=== PATIENT | male | born 1985 | race Caucasian/White ===

== ENCOUNTER 2024-04-22 11:11 | Emergency (ER) | payer OTHER, SELFPAY ==
--- NOTE | ~2024-04-22 | XR_ITS ---
EXAMINATION: XR CHEST CLINICAL INFORMATION: Chest pain COMPARISON: None available. TECHNIQUE: Frontal view of the chest was obtained. FINDINGS: The lungs are adequately expanded. No focal consolidation. No pleural effusion, overt edema or pneumothorax. The cardiomediastinal silhouette is within normal limits. No acute osseous abnormality. XR/XR chest 1V IMPRESSION: No acute pulmonary disease.
--- NOTE | 2024-04-22 11:11 | ECG_ITS ---
Test Reason : CHEST PAIN Blood Pressure : / mmHG Vent. Rate : 097 BPM Atrial Rate : 097 BPM P-R Int : 118 ms QRS Dur : 090 ms QT Int : 350 ms P-R-T Axes : 051 043 035 degrees QTc Int : 444 ms Normal sinus rhythm Normal ECG No previous ECGs available Referred By: Generic ED Physician Electronically Signed By:KIARA ANDERSON MD
--- NOTE | 2024-04-22 11:15 | ED.CHESTPAIN ---
HPI - Chest Pain General Chief Complaint: Chest Pain Stated Complaint: chest pain Time Seen by Provider: 04/22/24 14:31 History of Present Illness HPI narrative: The patient is a 38-year-old male who says he has been taking a great deal of cocaine nasally over the last week. He has been feeling a sense of chest pain and anxiety and has not been sleeping. He finally came to the emergency room to get help for this problem. Denies suicidality. He denies using a needle to take any drugs. Related Data Allergies Allergy/AdvReac Type Severity Reaction Status Date / Time No Known Allergies Allergy Verified 04/22/24 11:17 Review of Systems Review of Systems: Yes all other systems are reviewed and are negative [facility] Social History Social History Advance Directives: No Advance Directives Information Provided: No Physical Exam Vital Signs: Vital Signs: Last Vital Signs Temp 97.1 F 04/22/24 16:10 Pulse 66 04/22/24 16:10 Resp 16 04/22/24 16:10 BP 117/72 04/22/24 16:10 Pulse Ox 95 04/22/24 16:10 O2 Del Method Room Air 04/22/24 11:16 BMI result Body Mass Index 27.4 Const: Other: At the time that I saw the patient he had received a dose of lorazepam and was quite sleepy. He was arousable with tactile stimuli. He did not seem in distress HEENT: Other: The face is symmetrical. ?Mucous membranes moist. Eyes: Other: Pupils are round equal, conjunctivae are clear, extraocular movements intact Neck: Other: Neck is supple Neck: Yes no JVD Resp: Effort & Inspection: normal respiratory effort Auscultation: clear to auscultation bilaterally Cardio: Rate: regular rate Rhythm: regular rhythm Heart sounds: S1 normal heart sound present and S2 normal heart sound present GI: Other: Abdomen was soft and nontender Skin: Other: Skin is dry and unremarkable Neuro: Other: The patient was sleepy. He had received a dose of lorazepam. He was arousable with tactile and loud verbal stimuli. His face is symmetrical. His speech is clear. Eye movements normal. Neck is supple. Moving extremities symmetrically. He seems grossly neurologically intact. Extrem: Other: No deformities to the extremities. No peripheral edema. Course Course Course Narrative: This is a Rapid Medical Examination (RME) performed by Ernesto Carlson PA-C in triage. Full HPI, ROS, assessment and treatment plan per primary provider in the Main ED. 38 y/o male with history of depression and anxiety, cocaine use disorder who presents to the ER for evaluation of worsening central chest pains for the last 8 days in the setting of cocaine binge for the last week. He has been using an 8 ball of cocaine daily and has not slept in 1 week. He arrives to triage, anxious, restless. HR 110. Pain is currently 7/10. He is SOB. Plan: EKG, CXR, labs, he needs benzos Medications Administered Discontinued Medications Generic Name Dose Route Start Last Admin Trade Name Freq PRN Reason Stop Dose Admin Lorazepam 2 mg 04/22/24 11:41 04/22/24 11:50 Lorazepam 1 Mg Tablet PO 04/22/24 11:42 2 mg ONCE ONE Administration Medical Decision Making Medical Decision Making [facility] Narrative: The patient is a 38-year-old male who presents to the emergency room because he feels unwell after using a lot of cocaine. He has a normal EKG. His troponin is normal. His renal function is normal. He does not seem to have any definite identifiable acute complications of overuse of cocaine. He fell asleep easily after 2 mg of oral lorazepam. He was observed. Requesting food. He denies suicidality. He will be discharged once he is steady on his feet. Lab Data 04/22/24 11:28 04/22/24 11:29 Labs: Lab Results 04/22/24 04/22/24 Range/Units 11:28 11:29 WBC 9.9 (4.8-10.8) X10*3/uL RBC 5.39 (4.60-5.80) X10*6/uL Hgb 14.2 (14.0-18.0) g/dl Hct 42.8 (42.0-52.0) % MCV 79.4 L (80.0-98.0) fL MCH 26.3 L (27.0-33.0) pg MCHC 33.2 (31.0-36.0) g/dl RDW 14.0 (11.0-16.0) % Plt Count 380 (160-400) X10*3/uL MPV 10.0 (9.4-12.4) fL Immature Gran % (Auto) 0.3 (0.0-0.4) % Neut % (Auto) 59.6 (45-73) % Lymph % (Auto) 27.5 (20-40) % Mccreary % (Auto) 9.5 (2-11) % Eos % (Auto) 2.8 (0-4) % Baso % (Auto) 0.3 (0-2) % Lymph # (Auto) 2.7 (1.2-4.9) X10*3/uL Mccreary # (Auto) 0.9 (0.1-1.2) X10*3/uL Eos # (Auto) 0.3 (0.0-0.4) X10*3/uL Baso # (Auto) 0.0 (0.0-0.2) X10*3/uL Abs Immat Gran (auto) 0.03 (0.00-0.03) X10*3/uL Absolute Neuts (auto) 5.9 (2.0-8.3) x10*3/uL Absolute Nucleated RBC 0.000 (0.0-0.012) X10*3/uL Nucleated RBC % (auto) 0.0 (0.0-0.2) /100WBC PT 14.4 H (11.1-13.3) SEC INR 1.2 H (0.9-1.1) APTT 32.2 (26.0-36.8) SEC Sodium 140 (135-145) mmol/L Potassium 3.6 (3.3-5.1) mmol/L Chloride 105 (96-108) mmol/L Carbon Dioxide 26 (22-29) mmol/L Anion Gap 13 (12-20) BUN 11 (9-16) mg/dL Creatinine 0.92 (0.5-1.4) mg/dL Estim Creat Clear Calc 107.3 Estimated GFR > 60 Random Glucose 84 (60-115) mg/dL Calcium 10.0 (8.4-10.2) mg/dL Magnesium 2.3 (1.6-2.6) mg/dL Total Bilirubin 0.7 (0.0-1.0) mg/dL Direct Bilirubin 0.2 (0.0-0.5) mg/dL AST 23 (5-37) U/L ALT 15 (0-40) U/L Alkaline Phosphatase 81 (39-117) U/L Troponin I High Sens < 2.7 (<3.5-35.0) ng/L B-Natriuretic Peptide < 10 (<100) pg/mL Total Protein 7.9 (6.5-8.0) g/dL Albumin 4.4 (3.5-5.0) g/dL TSH 0.59 (0.32-4.0) uIU/mL Ethyl Alcohol < 10 mg/dL Independent Interpretation I performed an independent interpretation of an: EKG Interpretation: EKG at 11:19 shows normal sinus rhythm at 97 beats per minute. No acute. Discharge Plan Discharge Clinical Impression: Cocaine abuse Patient Disposition: Home, Self-Care Additional Instructions: Please do your best to avoid using cocaine in the future. If you want to speak to somebody about how you might be able to get help with any substance use problems or if you have any other confidential thought she might like to speak to someone you can contact the crisis hotline at [phone]. Please work on getting a regular doctor. May try contacting the [facility]. Return to the emergency room if you feel significantly worse. Referrals: [facility] [Provider Group] Print Language: Romansh
[2024-04-22 11:16] VITALS: BP 123/81; PULSE 115; RESP 22; TEMP 36.7; O2SAT 99; BMI 27.4
[2024-04-22 11:33] LABS: MANUAL DIFF FLAG NO
[2024-04-22 11:34] LABS: Basophils Percent Auto 0.3 % (0-2); Eosinophils Absolute Auto 0.3 X10*3/uL (0.0-0.4); Eosinophils Percent Auto 2.8 % (0-4); Hematocrit 42.8 % (42.0-52.0); Hemoglobin 14.2 g/dl (14.0-18.0); Imm Gran Abs Auto 0.03 X10*3/uL (0.00-0.03); Imm Gran Pct Auto 0.3 % (0.0-0.4); Lymphocytes Absolute Auto 2.7 X10*3/uL (1.2-4.9); Lymphocytes Percent Auto 27.5 % (20-40); Mean Corpuscular HGB Conc 33.2 g/dl (31.0-36.0); Mean Corpuscular Hemoglobin 26.3 pg (27.0-33.0); Mean Corpuscular Volume 79.4 fL (80.0-98.0); Monocytes Absolute Auto 0.9 X10*3/uL (0.1-1.2); Monocytes Percent Auto 9.5 % (2-11); Neutrophils Absolute Auto 5.9 x10*3/uL (2.0-8.3); Neutrophils Percent Auto 59.6 % (45-73); Platelet Count 380 X10*3/uL (160-400); Red Blood Count 5.39 X10*6/uL (4.60-5.80); White Blood Count 9.9 X10*3/uL (4.8-10.8)
[2024-04-22 11:41] LABS: INTERNATIONAL NORM RATIO 1.2 (0.9-1.1); Prothrombin Time 14.4 SEC (11.1-13.3)
[2024-04-22 11:44] LABS: Partial Thromboplastin Time 32.2 SEC (26.0-36.8)
[2024-04-22 11:49] LABS: Alanine Aminotransferase 15 U/L (0-40); Albumin Level 4.4 g/dL (3.5-5.0); Alkaline Phosphatase 81 U/L (39-117); Anion Gap 13 (12-20); Aspartate Amino Transferase 23 U/L (5-37); Bilirubin Direct 0.2 mg/dL (0.0-0.5); Bilirubin Total 0.7 mg/dL (0.0-1.0); Blood Urea Nitrogen 11 mg/dL (9-16); Carbon Dioxide 26 mmol/L (22-29); Chloride 105 mmol/L (96-108); Creatinine Clr Calc Pharmacy 107.3; Estimated Glomerular Filt Rate > 60; Glucose Random 84 mg/dL (60-115); Magnesium 2.3 mg/dL (1.6-2.6); Potassium 3.6 mmol/L (3.3-5.1); Sodium 140 mmol/L (135-145); Total Protein 7.9 g/dL (6.5-8.0)
[2024-04-22] MEDS: LORazepam 1 MG TABLET 2 MG PO (11:50)
[2024-04-22 11:54] LABS: B Type Natriuretic Peptide < 10 pg/mL (<100)
[2024-04-22 12:04] LABS: Ethanol < 10 mg/dL; Troponin-I High Sensitivity < 2.7 ng/L (<3.5-35.0)
[2024-04-22 12:10] LABS: TSH reflex Free T4 0.59 uIU/mL (0.32-4.0)
--- NOTE | 2024-04-22 12:17 | PC.NURSE ---
GIVEN PO ATIVAN IN TRIAGE
[2024-04-22 16:10] VITALS: BP 117/72; PULSE 66; RESP 16; TEMP 36.2; O2SAT 95
--- NOTE | 2024-04-22 18:27 | PC.NURSE ---
patient was not awake long enough to ask multiple questions on the worklist. urine was not obtained and this was ok per attending
[2024-04-22 18:28] VITALS: BP 113/69; PULSE 55; RESP 14; TEMP 36.4; O2SAT 94
--- NOTE | 2024-04-22 20:33 | PC.NURSE ---
pt now reporting at discharge that he was doing drug to try to kill himself. would like to speak to crisis
--- NOTE | 2024-04-22 21:03 | PC.NURSE ---
pt changed into green gown
[2024-04-23 06:20] VITALS: BP 99/65; PULSE 72; RESP 18; TEMP 36.8; O2SAT 98
--- NOTE | 2024-04-23 07:02 | PC.NURSE ---
Assumed care of patient at 0645. Patient is observed resting quietly in their bed. Breathing is even and unlabored with no signs of distress observed. Will continue plan of care.
[2024-04-23 10:37] VITALS: BP 99/65; PULSE 72; RESP 18; TEMP 36.8; O2SAT 98
== END 2024-04-23 10:54 | disposition home or self-care (01) ==
PROVIDERS: Physician Assistant; Emergency Provider Emergency Medicine
DX: F14.10 Cocaine abuse, uncomplicated (principal); R45.851 Suicidal ideations; F41.9 Anxiety disorder, unspecified
CPT/HCPCS: 36415; 71045; 80048; 80076; 80307; 83735; 83880; 84443; 84484; 85025; 85610; 85730; 93005; 99283; 99284; S9485

== ENCOUNTER → 2024-04-22 11:11 | Outpatient (BNV) | payer MEDICAID, SELFPAY | PROVIDERS: Emergency Provider Emergency Medicine; Visit Provider Internal Medicine Cardiovascular Disease | DX: R07.9 Chest pain, unspecified (principal) | CPT/HCPCS: 93010 ==

== ENCOUNTER 2025-07-07 00:25 | Emergency (ER) | payer MEDICAID, SELFPAY ==
[2025-07-07 00:31] VITALS: BP 112/62; PULSE 79; RESP 18; TEMP 36.7; O2SAT 95; BMI 28.2
[2025-07-07 00:59] LABS: Hematocrit 41.3 % (42.0-52.0); Hemoglobin 13.6 g/dl (14.0-18.0); Mean Corpuscular HGB Conc 32.9 g/dl (31.0-36.0); Mean Corpuscular Hemoglobin 26.4 pg (27.0-33.0); Mean Corpuscular Volume 80.0 fL (80.0-98.0); NRBC Abs Auto 0.000 X10*3/uL (0.0-0.012); NRBC Pct Auto 0.0 /100WBC (0.0-0.2); Platelet Count 394 X10*3/uL (160-400); Red Blood Count 5.16 X10*6/uL (4.60-5.80); White Blood Count 9.2 X10*3/uL (4.8-10.8)
[2025-07-07 01:02] LABS: Appearance Urine Clear; Glucose Urine UA Negative (Negative); PH 5.5 (5.0-9.0); Specific Gravity - Urine >= 1.030 (1.005-1.025); UMIC TRIGGER UACC YES
[2025-07-07 01:06] VITALS: BP 102/45; PULSE 72; RESP 18; O2SAT 97
[2025-07-07 01:25] LABS: Alanine Aminotransferase 18 U/L (0-40); Albumin Level 4.2 g/dL (3.5-5.0); Alkaline Phosphatase 108 U/L (39-117); Anion Gap 14 (12-20); Aspartate Amino Transferase 26 U/L (5-37); Blood Urea Nitrogen 16 mg/dL (9-16); Calcium 9.3 mg/dL (8.4-10.2); Carbon Dioxide 28 mmol/L (22-29); Chloride 107 mmol/L (96-108); Creatinine Clr Calc Pharmacy 92.7; Estimated Glomerular Filt Rate > 60; Potassium 4.0 mmol/L (3.3-5.1); Sodium 145 mmol/L (135-145); Total Protein 7.1 g/dL (6.5-8.0)
--- NOTE | 2025-07-07 02:00 | PC.NURSE ---
provider made aware of pts 10/10 pain- no new orders at this time.
--- NOTE | 2025-07-07 04:56 | ED.GENADULT ---
HPI - General Adult General Chief complaint: Abdominal Pain Stated complaint: back pain Time Seen by Provider: 07/07/25 04:50 Source: patient Mode of arrival: ambulatory Limitations: no limitations History of Present Illness ED Provider: Dr. Caro Trujillo HPI narrative: Patient comes to the emergency room complaining of lower back pain for 2 months. Patient states that he has not gotten any better. Patient states that occasionally he feels pressure is in his abdomen, states that it hurts when he urinates. Patient reports some numbness in her legs at times, not consistently. Patient denies urinary incontinence/retention. Patient denies fever or chills. Patient denies IV drug use, patient states that she snorts cocaine Related Data Allergies Allergy/AdvReac Type Severity Reaction Status Date / Time No Known Allergies Allergy Verified 07/07/25 00:33 Review of Systems Review of Systems: Constitutional : No Weight loss, No Fever, No Chills, No Night Sweats, No Fatigue, No Malaise ENT/Mouth : No Hearing loss, No Ear Pain, No Nasal Congestion, No Sinus Pain, No Hoarseness, No sore throat, No Rhinorrhea, No Swallowing Difficulty Eyes: No Eye Pain, No Swelling, No Redness, No Foreign Body, No Discharge, No Vision Changes Cardiovascular : No Chest Pain, No SOB, No Dyspnea on Exertion, No Orthopnea, No Edema, No Palpitations Respiratory : No Cough, No Sputum, No Wheezing, No Smoke Exposure, No Dyspnea Gastrointestinal : No Nausea, No Vomiting, No Diarrhea, No Constipation, No abdominal Pain, No Hematochezia, No Melena Genitourinary : no irregular bleeding, No Dysuria, No Urinary Frequency, No Hematuria, No Urinary Incontinence, No Urgency, No Flank Pain, No Urinary Flow Changes, No Hesitancy Musculoskeletal : Complaining of back pain especially around the paraspinal muscle area, no midline tenderness. Skin : No Skin Lesions, No rash Neuro : No Weakness, No Numbness, No Paresthesias, No Loss of Consciousness, No Dizziness, No Headache Psych : No Anxiety/Panic, No Depression, No SI/HI/AH/VH, No Social Issues, Heme/Lymph: No Bruising, No Bleeding,No Lymphadenopathy Endocrine : No Polyuria, No Polydipsia, No Temperature Intolerance Physical Exam ED Exam Exam: Appearance: Alert. Oriented X3. No acute distress. Eyes: Pupils equal, round and reactive to light. ENT: Pharynx normal. Neck: Normal inspection. Neck supple. No lymph nodes noted. No crepitus CVS: Normal heart rate and rhythm. Pulses normal. Normal S1 and S2 Respiratory: No respiratory distress. Breath sounds normal. No Wheezing. No rales Abdomen: Soft and nontender. No rigidity. No distention. Back: No pain to palpation over cervical/thoracic/lumbar spine, pain to palpation of the paraspinal muscles: Straight leg raise test Skin: Skin warm and dry. Normal skin color. Normal skin turgor. Extremities: No lower extremity edema. No Lacerations. No Rash Neuro: Oriented X 3. No motor deficit. No sensory deficit. Moving all extremities. No slurred speech. CN 2 through 12 grossly intact Psych: calm, cooperative, normal affect Vital Signs: Vital Signs - 24 hr 07/07/25 00:31 07/07/25 01:06 Temperature 98.1 F Pulse Rate 79 72 Respiratory Rate 18 18 Blood Pressure 112/62 102/45 L Pulse Oximetry 95 97 Oxygen Delivery Method Room Air Room Air BMI result Body Mass Index 28.2 Course Course Course Narrative: Patient comes in complaining of back pain for 2 months in the lower back. Patient reports occasional numbness and tingling the lower extremities. At this time, patient denies any symptoms. Patient reporting pain at this time. Her, patient has been sleeping the whole time, when he wakes up, he says he has 10/10 pain, and then goes back to sleep. Patient had negative straight leg raise test. Patient ambulatory with good lower extremity strength Medical Decision Making Medical Decision Making MDM Narrative: My interpretation of labs, no significant abnormality patient's hematology and chemistry, normal LFTs Urinalysis negative for UTI. On physical exam, patient had pain to palpation on the lower part of his back, along the paraspinal muscles, no lumbar spine tenderness. I offered to the patient ketorolac, muscle relaxants, patient declined. As we are trying to talk to the patient, patient keeps: His head and does not want to talk to us. Patient declined any further workup. Client any pain medications, states that he has a stronger stuff at home that he can use Differential Diagnosis Differential Diagnoses: The differential diagnosis associated with the presentation includes (Musculoskeletal back pain, epidural abscess, sciatica, kidney stones, malingering) Admission/Observation Consideration of admission/observation: Escalation of care including admission/observation considered (A flutter workup was considered including possible MRI animal cruelty investigator for epidural abscess. However, at this time, patient declined. Patient states that he has wants us to leave him alone) Lab Data MDM Lab Attestation statement: I reviewed the patient's lab results. 07/07/25 00:49 07/07/25 00:49 Labs: Lab Results 07/07/25 Range/Units 00:49 WBC 9.2 (4.8-10.8) X10*3/uL RBC 5.16 (4.60-5.80) X10*6/uL Hgb 13.6 L (14.0-18.0) g/dl Hct 41.3 L (42.0-52.0) % MCV 80.0 (80.0-98.0) fL MCH 26.4 L (27.0-33.0) pg MCHC 32.9 (31.0-36.0) g/dl RDW 15.0 (11.0-16.0) % Plt Count 394 (160-400) X10*3/uL MPV 10.2 (9.4-12.4) fL Absolute Nucleated RBC 0.000 (0.0-0.012) X10*3/uL Nucleated RBC % (auto) 0.0 (0.0-0.2) /100WBC Sodium 145 (135-145) mmol/L Potassium 4.0 (3.3-5.1) mmol/L Chloride 107 (96-108) mmol/L Carbon Dioxide 28 (22-29) mmol/L Anion Gap 14 (12-20) BUN 16 (9-16) mg/dL Creatinine 1.07 (0.5-1.4) mg/dL Estim Creat Clear Calc 92.7 Estimated GFR > 60 Random Glucose 75 (60-115) mg/dL Calcium 9.3 D (8.4-10.2) mg/dL Total Bilirubin 0.2 (0.0-1.0) mg/dL AST 26 (5-37) U/L ALT 18 (0-40) U/L Alkaline Phosphatase 108 (39-117) U/L Total Protein 7.1 (6.5-8.0) g/dL Albumin 4.2 (3.5-5.0) g/dL Urine Color Dark Yellow Urine Appearance Clear Urine pH 5.5 (5.0-9.0) Ur Specific [place] >= 1.030 H (1.005-1.025) Urine Protein 30 (1+) H (Neg-Trace) mg/dL Urine Glucose (UA) Negative (Negative) mg/dL Urine Ketones 15 (Negative) mg/dL Urine Blood Negative (Negative) Urine Nitrite Negative (Negative) Ur Leukocyte Esterase Negative (Negative) Urine RBC 0-2 (0-2) /HPF Urine WBC 0-5 (0-5) /HPF Ur Squamous Epith Cells 0-2 (0-2) /HPF Urine Bacteria None Seen (None Seen) Hyaline Casts 0-2 (0-2) /LPF Critical Care Time Critical Care Time Critical Care Time: Yes Total Critical Care Time: 35 Attestation: I have personally provided critical care time. Time includes review of lab data, radiology results, discussion with consultants, and monitoring for potential decompensation. Intervention performed as documented. Discharge Plan Discharge Clinical Impression: Chronic back pain Patient Disposition: Home, Self-Care Instructions: Chronic Back Pain (DC) Additional Instructions: Please follow-up with your primary care physician tomorrow. If you have any worsening or new symptoms, please return to the emergency room or call 911 Print Language: Malaysian
--- OUTSIDE RECORDS SUMMARY | 2025-07-07 05:00 | XMS_ITS | Clinical Summary ---
Author Organization [facility] Address [address] [place] [address] Care Team Providers Care Saw Operator Name Role Phone Raad Escobedo Primary Care Provider [phone] Allergies No known active allergies Medications * This document contains information received from the source organization and may not represent a complete record from that organization. traZODone (DESYREL) 50 mg tablet Take 50 mg by mouth nightly. 03/17/2022 Active magnesium hydroxide (MILK OF MAGNESIA) 400 mg/5 mL suspension Take 30 mL by mouth nightly as needed for constipation . Active omeprazole (PriLOSEC) 20 mg capsule Take 20 mg by mouth 2 times a day. 03/17/2022 Active escitalopram (LEXAPRO) 10 mg tablet Take 10 mg by mouth once a day. Active Social History Tobacco Use Types Packs/Day Years Used Date Smoking Tobacco: Every Day Smokeless Tobacco: Never Alcohol Use Standard Drinks/Week Comments Not Currently 0 (1 standard drink = 0.6 oz pur e alcohol) Sex and Gender Information Value Date Recorded Sex Assigned at Not on file Legal Sex Male 12:17 PM EDT Gender Identity Not on file Sexual Orientation Not on file Last Filed Vital Signs Vital Sign Reading Time Taken Comments Blood Pressure 117/72 03/23/2022 9:17 AM EDT Pulse 60 03/23/2022 9:17 AM EDT Temperature 36.7 C (98.1 F) 03/23/2022 9:17 AM EDT Respiratory Rate 18 03/23/2022 9:17 AM EDT Oxygen Saturation 98% 03/23/2022 9:17 AM EDT Inhaled Oxygen Concentration - - Weight 95.3 kg (210 lb) 03/22/2022 9:40 AM EDT Height - - Body Mass Index - - Plan of Treatment Not on file Insurance [facility] MEDICAID Care Teams Saw Operator Relationship Specialty Start Date End Date Raad Escobedo [address] [place] [id number] PCP - General 03/20/22
[2025-07-07 05:15] VITALS: BP 99/63; PULSE 71; RESP 18; O2SAT 98
[2025-07-07 05:27] LABS: Cannabinoid Screen Urine POSITIVE (Not Detect)
[2025-07-07 05:38] VITALS: BP 99/63; PULSE 71; RESP 18; TEMP 36.7; O2SAT 98
== END 2025-07-07 05:39 | disposition home or self-care (01) ==
PROVIDERS: Emergency Provider Emergency Medicine
DX: M54.50 Low back pain, unspecified (principal); F14.90 Cocaine use, unspecified, uncomplicated; R20.0 Anesthesia of skin; Z51.81 Encounter for therapeutic drug level monitoring; Z79.899 Other long term (current) drug therapy
CPT/HCPCS: 36415; 80053; 80307; 81001; 81003; 85027; 99283; 99284

== ENCOUNTER 2025-10-11 15:45 | Emergency (ER) | payer OTHER, SELFPAY ==
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
[2025-10-11 16:00] VITALS: BP 110/82; BP 124/82; PULSE 65; PULSE 72; RESP 18; TEMP 36.4; O2SAT 95; O2SAT 99; BMI 30.3
--- OUTSIDE RECORDS SUMMARY | 2025-10-11 16:19 | XMS_ITS | Clinical Summary ---
Author Organization [facility] Address [address] [place] [address] Care Team Providers Care Manager Strategic Partnerships Name Role Phone Unavailable Primary Care Provider Unavailabl e Social History Tobacco Use Types Packs/Day Years Used Date Smoking Tobacco: Never Assessed Sex and Gender Information Value Date Recorded Sex Assigned at Not on file Legal Sex Male 2:14 PM EST Gender Identity Not on file Sexual Orientation Not on file Plan of Treatment Health Maintenance Due Date Last Done Comments DTaP,Tdap,and Td Vaccines (1 - Tdap) 2005 Hepatitis B Vaccines (1 of 3 - 19+ 3-dose series) 2005 HPV Vaccines (1 - 3-dose SCD M series) 2013 Cholesterol Screening (Lipid Panel) 09/08/2024 HIV Screening 09/08/2024 Hepatitis C Screening 09/08/2024 Social Influencers of Health Screening 09/08/2024 Depression Screening 11/15/2024 COVID-19 Vaccine (1 - 2024-2 6 season) 2025 Influenza Vaccine (#1) 2025 RSV Immunization Adult Patie nts (1 - 1-dose 75+ series) 2061 HIB Vaccines Aged Out No longer eligi ble based on patient's age to complete this topic Hepatitis A Vaccines Aged Out No long er eligible based on patient's age to complete this topic IPV Vaccines Aged Out No longer eligi ble based on patient's age to complete this topic MMR Vaccines Aged Out No longer eligi ble based on patient's age to complete this topic Meningococcal ACWY Vaccine Aged Out N o longer eligible based on patient's age to complete this topic Meningococcal B Vaccine Aged Out No l onger eligible based on patient's age to complete this topic Pneumococcal Vaccine: Pediat rics (0 to 5 Years) and At-Risk Patients (6 to 49 Years) Aged Out No longer eligible b ased on patient's age to complete this topic RSV Immunization Patients Un sumi 20 months Aged Out No longer eligible b ased on patient's age to complete this topic Varicella Vaccines Aged Out No longer eligible based on patient's age to complete this topic
--- OUTSIDE RECORDS SUMMARY | 2025-10-11 16:19 | XMS_ITS | Clinical Summary ---
Author Organization [facility] Address [address] [place] [address] Care Team Providers Care Small Products Assembler Name Role Phone Raad Escobedo Primary Care Provider [phone] Allergies No known active allergies Medications * [...] Plan of Treatment Not on file Insurance [facility] MEDICAID Care Teams Small Products Assembler Relationship Specialty Start Date End Date Raad Escobedo [address] [place] [id number] PCP - General 03/20/22
--- NOTE | 2025-10-11 16:46 | PC.NURSE ---
pt medicated for 10 back pain
[2025-10-11 18:23] VITALS: BP 104/59; PULSE 61; RESP 15; TEMP 36.4; O2SAT 97
[2025-10-11 18:34] VITALS: BP 104/59; PULSE 61; RESP 15; TEMP 36.4; O2SAT 97
== END 2025-10-11 18:35 | disposition home or self-care (01) ==
PROVIDERS: Emergency Provider Emergency Medicine
DX: M54.16 Radiculopathy, lumbar region (principal)
CPT/HCPCS: 96372; 99284; J1885